=== PATIENT | male | born 1960 | race Caucasian/White ===

== ENCOUNTER 2018-10-06 11:39 | Emergency (ER) | payer MEDICAID ==
[2018-10-06 11:48] VITALS: BP 102/71
[2018-10-06] MEDS ORDERED: DEXAMETHASONE SOD PHOS INJ 10 MG/1 ML VIAL IM ONE (12:57)
[2018-10-06] MEDS ORDERED: KETOROLAC TROMETHAMINE 60 MG/2 ML SDV IM ONE (12:57)
--- NOTE | 2018-10-06 13:00 | ER Document Report ---
HPI - HPI Time Seen by Provider: 10/06/18 12:36 Pain Level: 3 Context: Patient is a 57-year-old male who presents the emergency department with a chief complaint of neck, low back, and shoulder pain. He had cervical spine surgery in December 2017 by neurosurgeons in [place]. He states that he has had this pain for the past week and a half and he saw his primary care provider and was given 7.5 [place]. He states that he had not taken them for the past 3 days because it made him feel " itchy." He denies any bladder or bowel dysfunction. He is able to move his neck with no problem. He denies any injury. Denies any bladder or bowel dysfunction. Denies any history of IV drug abuse or cancer. Patient does admit to tingling, but denies any numbness. She has mental health history. - CONSTITUTIONAL Constitutional: DENIES: Fever, Chills - EENT EENT: DENIES: Sore Throat - NEURO Neurology: DENIES: Headache - CARDIOVASCULAR Cardiovascular: DENIES: Chest pain - RESPIRATORY Respiratory: DENIES: Trouble Breathing, Coughing - GASTROINTESTINAL Gastrointestinal: DENIES: Abdominal Pain - URINARY Urinary: DENIES: Dysuria - MUSCULOSKELETAL Musculoskeletal: REPORTS: Back Pain, Neck Pain. DENIES: Extremity pain, Swelling - DERM Skin Color: Normal Skin Problems: None Past Medical History - General Information source: Patient - Social History Smoking Status: Unknown if Ever Smoked Family History: Other - CHILD IN FAMILY W/ URI RECENTLY Psychiatric Medical History: Reports: Hx Bipolar Disorder Past Surgical History: Reports: Hx Abdominal Surgery - hernia surgery, Hx Cholecystectomy - Immunizations Immunizations up to date: Yes Hx Diphtheria, Pertussis, Tetanus Vaccination: Yes Vertical Provider Document - CONSTITUTIONAL Agree With Documented VS: Yes Exam Limitations: No Limitations General Appearance: No Apparent Distress - INFECTION CONTROL TRAVEL OUTSIDE OF THE [place] IN LAST 30 DAYS: No - HEENT HEENT: Atraumatic, Normocephalic, PERRLA - NECK Neck: Normal Inspection, Other - Scar noted on posterior neck from previous surgery - RESPIRATORY Respiratory: Breath Sounds Normal, No Respiratory Distress - CARDIOVASCULAR Cardiovascular: Regular Rate, Regular Rhythm Pulses: Normal: Radial - BACK Back: Normal Inspection - MUSCULOSKELETAL/EXTREMETIES Musculoskeletal/Extremeties: FROM, Tender - Bilateral sides of neck, no midline tenderness, No Edema. negative: Eccymosis - NEURO Level of Consciousness: Awake, Alert, Appropriate - DERM Integumentary: Warm, Dry, No Rash Course - Re-evaluation Re-evalutation: 10/06/18 13:05 Differential diagnosis for back pain includes muscle spasm, muscle strain, slipped disc cauda equina syndrome, vertebral fracture, vertebral tumor, epid ural abscess, pyelonephritis, or AAA. Based on history and exam, the most likely etiology of the patient's back pain is chronic. Emergent MRI is not indicated at this time because the patient does not have new weakness, or cauda equina syndrome. Patient does not have bladder or bowel dysfunction. Patient does not have history of IV drug use, therefore, I do not suspect an epidural abscess. Patient does not have recent weight loss or night sweats, and does not have a known history of cancer. He will receive Toradol and Decadron here in the emergency department. He will follow-up with his primary care provider and pain management. He is in agreement with this plan. Verbal discharge instructions were given to the patient. They verbalized understanding. They are stable for discharge. - Vital Signs Vital signs: Temp Pulse Resp BP Pulse Ox 98.5 F 102 H 102/71 94 10/06/18 11:46 10/06/18 11:46 10/06/18 11:46 10/06/18 11:46 Discharge - Discharge Clinical Impression: Neck pain Back pain Qualifiers: Back pain location: low back pain Chronicity: chronic Back pain laterality: bilateral Sciatica presence: without sciatica Qualified Code(s): M54.5 - Low back pain Shoulder pain Qualifiers: Chronicity: chronic Laterality: bilateral Qualified Code(s): M25.511 - Pain in right shoulder Condition: Stable Disposition: HOME, SELF-CARE Additional Instructions: You were seen today in the emergency department for neck, back, and shoulder pain. Your pain is chronic pain. You have been given a shot of steroids here i n the emergency department. You have also been given Toradol. You can take 1 tablet every 6 hours as needed. Please do not take ibuprofen while you are on this medication. Please follow-up with primary care provider and pain management in regards to this visit. Prescriptions: Ketorolac Tromethamine [Toradol 10 mg Tablet] 10 mg PO Q6HP PRN #20 tablet PRN Reason: Referrals: ANU,JACE, PA-C [Primary Care Provider] - Follow up in 3-5 days
== END 2018-10-06 13:32 | disposition home or self-care (01) ==
LOC: ER 11:39
DX: M54.2 Cervicalgia (principal); M54.5 Low back pain; G89.29 Other chronic pain; M25.511 Pain in right shoulder; R20.2 Paresthesia of skin; Z98.890 Other specified postprocedural states
CPT/HCPCS: 99283; 96372; J1885; J1100

== ENCOUNTER 2019-12-01 10:45 | Emergency (ER) | payer MEDICAID ==
--- NOTE | 2019-12-01 11:00 | ER Document Report ---
ED Medical Screen (RME) - General Chief Complaint: Leg Pain Stated Complaint: LEFT LEG WEAKNESS Time Seen by Provider: 12/01/19 10:51 Primary Care Provider: JACE BRENNAN PA-C [Primary Care Provider] - Follow up as needed Mode of Arrival: Medic Information source: Patient Notes: 59-year-old male presented to ED for complaint of no control of left arm or legs cannot move them. Right arm has very poor control right leg is functional. He states the left arm and leg is been for at least 2 weeks right arm for about a week. He states he went to her doctor about a week ago concerning follow-up for surgery that he had to his neck a year and a half ago but they did not change anything. He states he lives with other adults. He states his main medical history of schizophrenia differentiated. He is alert oriented respirations regular nonlabored. He is not able to move the left arm or leg at all and has very poor control of the right arm. He does smoke 7 cigarettes a day does not drink or use any drugs. I have greeted and performed a rapid initial assessment of this patient. A comprehensive ED assessment and evaluation of the patient, analysis of test results and completion of medical decision making process will be conducted by an additional ED providers. TRAVEL OUTSIDE OF THE U[place]. IN LAST 30 DAYS: No - Related Data Allergies/Adverse Reactions: Penicillins Allergy (Verified 10/06/18 11:41) Past Medical History Renal/ Medical History: Denies: Hx Peritoneal Dialysis Psychiatric Medical History: Reports: Hx Bipolar Disorder Past Surgical History: Reports: Hx Abdominal Surgery - hernia surgery, Hx Cholecystectomy - Immunizations Immunizations up to date: Yes Hx Diphtheria, Pertussis, Tetanus Vaccination: Yes Physical Exam - Vital signs Vitals: Temp Pulse Resp BP Pulse Ox 98.7 F 96 16 101/70 98 12/01/19 10:50 12/01/19 10:50 12/01/19 10:50 12/01/19 10:50 12/01/19 10:50 Course - Vital Signs Vital signs: Temp Pulse Resp BP Pulse Ox 98.7 F 96 16 101/70 98 12/01/19 10:50 12/01/19 10:50 12/01/19 10:50 12/01/19 10:50 12/01/19 10:50 Doctor's Discharge - Discharge Referrals: ANU,JACE, PA-C [Primary Care Provider] - Follow up as needed
--- NOTE | 2019-12-01 11:28 | RADIOLOGY REPORT (SQ) ---
EXAM DESCRIPTION: CHEST SINGLE VIEW IMAGES COMPLETED DATE/TIME: 12/01/2019 11:18 am REASON FOR STUDY: Weakness left arm and leg x1 week COMPARISON: Two-view chest 11/16/2012 EXAM PARAMETERS: NUMBER OF VIEWS: One view. TECHNIQUE: Single frontal radiographic view of the chest acquired. RADIATION DOSE: NA LIMITATIONS: None. FINDINGS: LUNGS AND PLEURA: Upper lobes are hyperlucent from obstructive disease. Remainder of the lungs are grossly clear. No pleural effusion. No pneumothorax. MEDIASTINUM AND HILAR STRUCTURES: No masses. Contour normal. HEART AND VASCULAR STRUCTURES: Heart normal in size. Normal vasculature. BONES: No acute findings. HARDWARE: None in the chest. OTHER: No other significant finding. IMPRESSION: Obstructive lung disease. No acute infiltrates TECHNICAL DOCUMENTATION: JOB ID: [id number] 2010 [employer]- All Rights Reserved Reading location - IP/workstation name: [email or web address]
--- NOTE | 2019-12-01 11:35 | RADIOLOGY REPORT (SQ) ---
EXAM DESCRIPTION: CT HEAD WITHOUT IMAGES COMPLETED DATE/TIME: 12/01/2019 10:12 am REASON FOR STUDY: Weakness left arm and leg x1 week COMPARISON: None. TECHNIQUE: Axial images acquired through the brain without intravenous contrast. Images reviewed wi th bone, brain and subdural windows. Additional sagittal and coronal reconstructions were generated. Images stored on PACS. All CT scanners at this facility use dose modulation, iterative reconstruction, and/or weight based d osing when appropriate to reduce radiation dose to as low as reasonably achievable (ALARA). [facility]: Dose Right [facility]: CareDose [facility]: Dose Right [facility]: Teradose 4D [facility]: Smart [employer] RADIATION DOSE: CT Rad equipment meets quality standard of care and radiation dose reduction techniq ues were employed. CTDIvol: 53.2 mGy. DLP: 1017 mGy-cm. mGy. LIMITATIONS: None. FINDINGS: VENTRICLES: Normal size and contour. CEREBRUM: No masses. No hemorrhage. No midline shift. No evidence for acute infarction. Normal gra y-white matter differentiation. Mild patchy subcortical white matter hypodense attenuation consisten t with mild chronic small vessel ischemic change. CEREBELLUM: No masses. No hemorrhage. No alteration of density. No evidence for acute infarction. EXTRAAXIAL SPACES: No fluid collections. No masses. ORBITS AND GLOBE: No intra- or extraconal masses. Normal contour of globe without masses. CALVARIUM: No fracture. PARANASAL SINUSES: No fluid or mucosal thickening. SOFT TISSUES: No mass or hematoma. OTHER: Partial visualization of cervical spine laminectomy and fusion. IMPRESSION: 1. No acute intracranial hemorrhage, mass, or evidence of acute territorial infarct. 2. Mild chronic small vessel ischemic change. EVIDENCE OF ACUTE STROKE: NO. COMMENT: Quality ID # [id number]: Final reports with documentation of one or more dose reduction techniques (e.g., Automated exposure control, adjustment of the mA and/or kV according to patient size, use of iterative reconstruction technique) TECHNICAL DOCUMENTATION: JOB ID: [id number] [employer]- All Rights Reserved Reading location - IP/workstation name: [email or web address]
[2019-12-01 11:40] LABS: ABSOLUTE BASOPHILS # (AUTO) 0.1 10^3/uL (0.0-0.2); ABSOLUTE EOSINOPHILS # (AUTO) 0.1 10^3/uL (0.0-0.6); ABSOLUTE LYMPHOCYTES (AUTO) 1.9 10^3/uL (0.5-4.7); ABSOLUTE MONOCYTES (AUTO) 0.6 10^3/uL (0.1-1.4); ABSOLUTE NEUT (AUTO) 4.3 10^3/uL (1.7-8.2); BASOPHILS % (AUTO) 1.3 % (0-2); EOSINOPHILS % (AUTO) 1.5 % (0-6); HEMATOCRIT 41.5 % (37.9-51.0); HEMOGLOBIN 14.6 g/dL (13.5-17.0); MEAN CORPUSCULAR HEMOGLOBIN 30.6 pg (27.0-33.4); MEAN CORPUSCULAR VOLUME 87 fl (80-97); PLATELET COUNT 510 10^3/uL (150-450); RED BLOOD COUNT 4.76 10^6/uL (4.35-5.55); SEGMENTED NEUTROPHILS % (AUTO) 62.2 % (42-78); TOTAL CELLS COUNTED % (AUTO) 100 %
--- NOTE | 2019-12-01 11:41 | RADIOLOGY REPORT (SQ) ---
EXAM DESCRIPTION: CT CERVICAL SPINE WITHOUT IMAGES COMPLETED DATE/TIME: 12/01/2019 10:12 am REASON FOR STUDY: decreased control right arm no control left arm or. COMPARISON: None. TECHNIQUE: Axial images acquired through the cervical spine without intravenous contrast. Images re viewed with lung, soft tissue and bone windows. Reconstructed coronal and sagittal MPR images review ed. Images stored on PACS. All CT scanners at this facility use dose modulation, iterative reconstruction, and/or weight based d osing when appropriate to reduce radiation dose to as low as reasonably achievable (ALARA). [facility]: Dose Right [facility]: CareDose [facility]: Dose Right [facility]: Teradose 4D [facility]: Smart [employer] RADIATION DOSE: CT Rad equipment meets quality standard of care and radiation dose reduction techniq ues were employed. CTDIvol: 24.4 mGy. DLP: 477 mGy-cm. mGy. LIMITATIONS: None. FINDINGS: ALIGNMENT: There is moderate anterolisthesis and subluxation of C2 on C3 approximately 1/2 vertebral body measuring 10 mm. Pr[place] right curvature at the upper cervical spine centered at C3-C4 likely on the basis of chronic degenerative change. MINERALIZATION: Normal. VERTEBRAL BODIES: No acute fracture or cortical disruption. Subchondral sclerosis and cystic change at the inferior endplate C2 and superior endplate C3. Small marginal osteophytes at C4 and C5. No d estructive bone lesions. DISCS: Severe degenerative disc disease at C2-C3. Moderate degenerative disc disease with loss of in tervertebral disc height at C3-C4, C4-C5 and C5-C6. Moderate loss of posterior intervertebral disc h eight at C6 - C7. FACETS, LATERAL MASSES, POSTERIOR ELEMENTS: Posterior laminectomy C2-C3. No fractures. No dislocat ion. No acute findings. HARDWARE: Posterior fusion traverses the pedicles of C2 and C3. There is no evidence of hardware fra cture, loosening or subsidence. VISUALIZED RIBS: No fractures. LUNG APICES AND SOFT TISSUES: Moderate pulmonary emphysema at the lung apices. No focal consolidatio n. OTHER: No other significant finding. IMPRESSION: 1. Moderate to severe chronic anterolisthesis C2 on C3 with severe degenerative disc disease at this level. There is posterior laminectomy and fusion spanning these levels without evidence of hardware complication. This appears chronic in nature, however with any previous outside images to evaluate f or interval change may be helpful with new onset symptoms. 2. No acute fracture or dislocation of the cervical spine. 3. Multilevel degenerative disc disease. No acquired spinal canal stenosis. 4. Moderate pulmonary emphysema at the lung apices. TECHNICAL DOCUMENTATION: JOB ID: [id number] Quality ID # [id number]: Final reports with documentation of one or more dose reduction techniques (e.g., Au tomated exposure control, adjustment of the mA and/or kV according to patient size, use of iterative reconstruction technique) 2010 [employer]- All Rights Reserved Reading location - IP/workstation name: [email or web address]
[2019-12-01 11:47] LABS: PARTIAL THROMBOPLASTIN TIME 29.1 SEC (23.5-35.8)
[2019-12-01 11:50] LABS: PROTHROMBIN TIME 13.2 SEC (11.4-15.4)
[2019-12-01 11:57] LABS: ALBUMIN 3.8 g/dL (3.5-5.0); ALKALINE PHOSPHATASE 91 U/L (38-126); ANION GAP 5 (5-19); ASPARTATE AMINO TRANSFERASE 19 U/L (17-59); BILIRUBIN,TOTAL 0.3 mg/dL (0.2-1.3); BLOOD UREA NITROGEN 18 mg/dL (7-20); CALCIUM 9.6 mg/dL (8.4-10.2); CARBON DIOXIDE 25 mmol/L (22-30); CHLORIDE 108 mmol/L (98-107); CREATINE KINASE 57 U/L (55-170); GLUCOSE 127 mg/dL (75-110); POTASSIUM 4.5 mmol/L (3.6-5.0); TOTAL PROTEIN 7.3 g/dL (6.3-8.2)
--- NOTE | 2019-12-01 12:01 | EKG REPORT ---
SEVERITY:- NORMAL ECG - SINUS RHYTHM : Confirmed by: Parvez Gardiner MD 01-Dec-2019 12:00:59
[2019-12-01 12:09] LABS: CREATINE KINASE MB 1.21 ng/mL (<4.55)
[2019-12-01 12:19] LABS: TROPONIN I < 0.012 ng/mL
--- NOTE | 2019-12-01 14:12 | ER Document Report ---
ED General - General Chief Complaint: Weakness Stated Complaint: LEFT LEG WEAKNESS Time Seen by Provider: 12/01/19 10:51 Primary Care Provider: JACE BRENNAN PA-C [Primary Care Provider] - Follow up as needed Mode of Arrival: Medic TRAVEL OUTSIDE OF THE [place] IN LAST 30 DAYS: No - HPI Notes: Patient is a 59-year-old male presents to the emergency department for evaluation. He is an extremely difficult historian, secondary to his bipolar/schizophrenia. In short, the patient initially states he has absolutely no control over different extremities. He states he had revision of the cervical spine surgery about 9 months ago. He states he is having difficulty with his right upper extremity and his left lower extremity. At first he tells me he cannot move them, but demonstrates significant active and passive range of motion, states that they are just "popping." He states he has not tried anything for pain, has not discussed anything with his primary care provider, but then further notes he has a referral for pain management because of his c hronic neck, upper extremity, and lower extremity pain. He denies any fevers or chills. No nausea or vomiting. He states he has been taking his medications as prescribed, but does not remember all of his medications at this moment. He asks me if he is going to be admitted to the hospital. He states he thought he might have somebody "help take care of him" until he got on some pain management medications. He denies any suicidal or homicidal ideations. He denies any visual or auditory hallucinations. He just states he needs something to help with his arms and legs. - Related Data Allergies/Adverse Reactions: Penicillins Allergy (Verified 10/06/18 11:41) Home Medications: Bactrim, Clindamycin, Levothyroxine, Rexulti Past Medical History - General Information source: Patient - Social History Smoking Status: Current Every Day Smoker Family History: Reviewed & Not Pertinent Endocrine Medical History: Reports: Hx Hypothyroidism Renal/ Medical History: Denies: Hx Peritoneal Dialysis Psychiatric Medical History: Reports: Hx Bipolar Disorder, Hx Schizophrenia Past Surgical History: Reports: Hx Abdominal Surgery - hernia surgery, Hx Cholecystectomy, Hx Orthopedic Surgery - Cervical spine fusion - Immunizations Immunizations up to date: Yes Hx Diphtheria, Pertussis, Tetanus Vaccination: Yes Review of Systems - Review of Systems Musculoskeletal: See HPI Neurological/Psychological: See HPI Physical Exam - Vital signs Vitals: Temp Pulse Resp BP Pulse Ox 98.7 F 96 16 101/70 98 12/01/19 10:50 12/01/19 10:50 12/01/19 10:50 12/01/19 10:50 12/01/19 10:50 - Notes Notes: This is a disheveled but pleasant 59-year-old male, who appears his stated age, no acute distress. Vital signs reviewed, please refer to chart. Head is normocephalic, atraumatic. Pupils equal round, reactive to light. Neck is supple without meningismus. Heart is regular rate and rhythm. Lungs are clear to auscultation bilaterally. Abdomen is soft, nontender, normoactive bowel sounds throughout. Extremities without cyanosis, clubbing. Posterior calves are nontender. Peripheral pulses are equal. Skin is warm and dry. Patient is awake, alert, oriented x3. Cranial nerves II - XII are grossly intact without f ocal neurological deficits. Strength is plus 5 out of 5 bilateral upper and lower extremities. Sensation is intact. Biceps, brachioradialis, patellar, Achilles reflexes all symmetrical. Intact [id number], rapid alternating movements, [id number]. Course - Re-evaluation Re-evalutation: 12/01/19 14:48 Patient presents to the emergency department for evaluation. He has very disorganized thought pattern, but he does not appear to be actively hallucinating. He is cooperative with examiner, states he does not have control over his extremities, but I believe he is more telling me that his leg is giving way on him on occasion. He states he heard a popping in his knee. I suspect that this is in part due to some arthritic changes. Despite ambulating in, the patient states he cannot bear weight on his knee. I will go ahead and give him a knee brace and some crutches. He already has chronic pain issues from his neck, has been referred on to chronic pain management. He has no signs of active infection in any of his joints, good strength, sensation, reflexes to all 4 extremities. Blood work is largely unremarkable. Knee x-ray is interpreted by myself without the radiologist showing no acute fractures. At this point he needs to follow-up with primary care, will also refer him to on-call orthopedist. We will write him a prescription for Mobic. He is to follow-up with primary care and pain management, for which he has an appointment already on December 15. He is to return to the emergency department for worsening or new concerning symptoms of any sort. - Vital Signs Vital signs: Temp Pulse Resp BP Pulse Ox 97.4 F 92 22 H 148/86 H 97 12/01/19 15:00 12/01/19 15:00 12/01/19 15:00 12/01/19 15:00 12/01/19 15:00 - Laboratory Result Diagrams: 12/01/19 11:36 12/01/19 11:36 Laboratory results interpreted by me: 12/01/19 12/01/19 12/01/19 11:23 11:36 11:36 Plt Count 510 H Chloride 108 H Glucose 127 H POC Glucose 113 H - Diagnostic Test Radiology reviewed: Image reviewed, Reports reviewed Radiology results interpreted by me: 12/01/19 14:50 Chest X-Ray 12/01/19 10:57 IMPRESSION: Obstructive lung disease. No acute infiltrates Head CT 12/01/19 10:57 IMPRESSION: 1. No acute intracranial hemorrhage, mass, or evidence of acute territorial infarct. 2. Mild chronic small vessel ischemic change. EVIDENCE OF ACUTE STROKE: NO. Cervical Spine CT 12/01/19 10:58 IMPRESSION: 1. Moderate to severe chronic anterolisthesis C2 on C3 with severe degenerative disc disease at this level. There is posterior laminectomy and fusion spanning these levels without evidence of hardware complication. This appears chronic in nature, however with any previous outside images to evaluate for interval change may be helpful with new onset symptoms. 2. No acute fracture or dislocation of the cervical spine. 3. Multilevel degenerative disc disease. No acquired spinal canal stenosis. 4. Moderate pulmonary emphysema at the lung apices. Discharge - Discharge Clinical Impression: Chronic neck pain Left knee pain Qualifiers: Chronicity: unspecified Qualified Code(s): M25.562 - Pain in left knee Condition: Stable Disposition: HOME, SELF-CARE Instructions: Knee Exercise Program ([facility]) Additional Instructions: Leonardo wrap to knee, use crutches as needed to avoid weightbearing, since is painful. Mobic as needed for severe pain. Follow-up with pain management as scheduled. Please also follow-up with orthopedics and primary care for further evaluation. Return to the emergency department with worsening or new concerning symptoms of any sort. Prescriptions: Meloxicam [Mobic 7.5 Mg Tablet] 7.5 mg PO BID #14 tablet Referrals: JACE BRENNAN PA-C [Primary Care Provider] - Follow up as needed
--- NOTE | 2019-12-01 15:00 | RADIOLOGY REPORT (SQ) ---
EXAM DESCRIPTION: KNEE LEFT 3 VIEWS IMAGES COMPLETED DATE/TIME: 12/01/2019 2:42 pm REASON FOR STUDY: pain COMPARISON: None. NUMBER OF VIEWS: Four views. TECHNIQUE: AP, lateral, and both oblique radiographic images acquired of the left knee. LIMITATIONS: None. FINDINGS: MINERALIZATION: Normal. BONES: No acute fracture or dislocation. No worrisome bone lesions. JOINT: Medial joint compartment narrowing marginal osteophytes. Narrowing of the lateral compartment with no significant osteophytes. SOFT TISSUES: No soft tissue swelling. No radio-opaque foreign body. OTHER: No other significant finding. IMPRESSION: Medial compartment degenerative joint disease. TECHNICAL DOCUMENTATION: JOB ID: [id number] 2010 [employer]- All Rights Reserved Reading location - IP/workstation name: [email or web address]
[2019-12-01 15:50] VITALS: BP 148/86
== END 2019-12-01 15:15 | disposition home or self-care (01) ==
LOC: ER 10:45
DX: M50.31 Other cervical disc degeneration, high cervical region (principal); Z98.1 Arthrodesis status; M25.562 Pain in left knee; J43.9 Emphysema, unspecified; E03.9 Hypothyroidism, unspecified; F17.200 Nicotine dependence, unspecified, uncomplicated; F31.9 Bipolar disorder, unspecified; F20.9 Schizophrenia, unspecified; Z79.899 Other long term (current) drug therapy; Z79.2 Long term (current) use of antibiotics; Z88.0 Allergy status to penicillin
CPT/HCPCS: 36415; 70450; 71045; 72125; 80053; 82550; 82553; 82962; 84484; 85025; 85610; 85730; 93005; 93010; 99284

== ENCOUNTER → 2020-01-22 | Outpatient (CLI) | payer MEDICAID ==
--- NOTE | 2020-01-22 15:22 | RADIOLOGY REPORT (SQ) ---
EXAM DESCRIPTION: LUMBAR SPINE COMPLETE IMAGES COMPLETED DATE/TIME: 01/22/2020 2:02 pm REASON FOR STUDY: LUMBAR RADICULOPATHY M54.16 RADICULOPATHY, LUMBAR REGION COMPARISON: None. NUMBER OF VIEWS: Five views including obliques. TECHNIQUE: AP, lateral, oblique, and sacral radiographic images acquired of the lumbar spine. LIMITATIONS: None. FINDINGS: MINERALIZATION: Normal. SEGMENTATION: Normal. No transitional anatomy. ALIGNMENT: Normal. VERTEBRAE: Maintained height. No fracture or worrisome bone lesion. DISCS: Mild narrowing of the L5-S1 disc. POSTERIOR ELEMENTS: Mild hypertrophic facet changes from L4-S1. HARDWARE: None in the spine. PARASPINAL SOFT TISSUES: Normal. PELVIS: Intact as visualized. No fractures or worrisome bone lesions. SI joints intact. OTHER: No other significant finding. IMPRESSION: Mild degenerative disc disease and facet arthropathy. TECHNICAL DOCUMENTATION: JOB ID: [id number] 2010 [employer]- All Rights Reserved Reading location - IP/workstation name: [email or web address]
== END ==
LOC: OD 12:48
PROVIDERS: ATTEND Family Medicine
DX: M51.17 Intervertebral disc disorders with radiculopathy, lumbosacral region (principal)
CPT/HCPCS: 72110